=== PATIENT | female | born 1965 | race Caucasian/White ===

== ENCOUNTER 2019-10-29 13:20 | Emergency (ER) | payer OTHER, SELFPAY ==
[2019-10-29 13:33] VITALS: BP 153/116; PULSE 98; RESP 18; TEMP 36.7; O2SAT 98
[2019-10-29 13:39] VITALS: O2SAT 98
--- NOTE | 2019-10-29 14:02 | ED.GENADULT ---
HPI - General Adult General Chief complaint: Upper Respiratory Infection Stated complaint: Influenza A Time Seen by Provider: 10/29/19 13:34 Source: patient Mode of arrival: ambulatory Limitations: no limitations History of Present Illness HPI narrative: Patient is a 54-year-old female who presents to emergency department for evaluation of upper respiratory symptoms that began Sunday night with fever chills and body aches noted she tested positive for influenza A today has had cough congestion rhinorrhea sore throat has been taking [id number] medications with minimal improvement. Related Data Allergies Allergy/AdvReac Type Severity Reaction Status Date / Time clindamycin Allergy Severe ANAPHYLAXIS Verified 10/29/19 13:38 lisinopril Allergy Severe ANGIO EDEMA Verified 10/29/19 13:38 Sulfa (Sulfonamide Allergy Unknown Unknown Verified 10/29/19 13:38 Antibiotics) MOXYFLOXACIN Allergy Severe ANAPHYLAXIS Uncoded 10/29/19 13:38 BETABLOCKERS Allergy Intermediate RED SKIN Uncoded 10/29/19 13:38 NKFA Allergy Unknown Unknown Uncoded 10/29/19 13:38 TRIMETHSULF Allergy Unknown Unknown Uncoded 10/29/19 13:38 SULFAMETHOXAZOLE (Generic Allergy Y Uncoded 10/29/19 13:38 Allergy) Review of Systems Review of Systems: All systems reviewed & are unremarkable except as noted in HPI and below PMFSH Past Medical History Medical History (Updated 10/29/19 @ 14:05 by Ced Garrison PA-C) Obesity Social History Social History Gender identity (if verbalized by the patient): Female Exam Narrative: Exam Narrative: GENERAL: Well-appearing, well-nourished, and in no acute distress. HEAD: Normocephalic, atraumatic. EYES: PERRLA and EOMI. ENT: Nares clear, no rhinorrhea or epistaxis. Mucous membranes moist. CHEST: Clear to auscultation. No respiratory distress. No wheezes rales or rhonchi HEART: Regular rate and rhythm. No murmur heard. Normal peripheral pulses. SKIN: Warm, dry, no rash. NEURO: No focal deficits. Alert and oriented x3. PSYCH: Normal mood and affect. Course Course Emergency Course: Patient in the room in no distress aware of case findings treatment plan and diagnosis agreeing to follow-up as directed or to return if symptoms worsen or concern Vital Signs Vital signs: Vital Signs Temperature 98.1 F 10/29/19 13:33 Pulse Rate 98 10/29/19 13:33 Respiratory Rate 18 10/29/19 13:33 Blood Pressure 153/116 H 10/29/19 13:33 Pulse Oximetry 98 10/29/19 13:33 Temperature 98.1 F 10/29/19 13:33 Pulse Rate 98 10/29/19 13:33 Respiratory Rate 18 10/29/19 13:33 Blood Pressure 153/116 H 10/29/19 13:33 Pulse Oximetry 98 10/29/19 13:39 Medical Decision Making MDM Narrative Medical decision making narrative: Patient in the room in no distress aware of case findings treatment plan and diagnosis agreeing to follow-up as directed provided with reasons to return Vital Signs Vital Signs: Vital Signs Temperature 98.1 F 10/29/19 13:33 Pulse Rate 98 10/29/19 13:33 Respiratory Rate 18 10/29/19 13:33 Blood Pressure 153/116 H 10/29/19 13:33 Pulse Oximetry 98 10/29/19 13:33 Temperature 98.1 F 10/29/19 13:33 Pulse Rate 98 10/29/19 13:33 Respiratory Rate 18 10/29/19 13:33 Blood Pressure 153/116 H 10/29/19 13:33 Pulse Oximetry 98 10/29/19 13:39 Discharge Plan Discharge Clinical Impression: Influenza Patient Disposition: Home, Self-Care Condition: Stable Instructions: Antibiotic Form, Influenza (ED) Additional Instructions: Follow up with your primary care provider within 1-2 days to set up for reevaluation. Go to ER for shortness of breath, difficulty breathing, chest pain, fever/chills, weakness, nauseau/vomitting, etc. or any other concerns. Stay well-hydrated Take any prescribed medications as directed. Follow patient education sheets If you do not have a drug allergy to tylenol or m
== END 2019-10-29 14:26 | disposition home or self-care (01) ==
PROVIDERS: Emergency Provider Emergency Medicine
DX: J10.1 Influenza due to other identified influenza virus with other respiratory manifestations (principal)
CPT/HCPCS: 99283

== ENCOUNTER 2020-10-01 06:47 | Emergency (ER) | payer OTHER, SELFPAY ==
--- NOTE | ~2020-10-01 | XR_ITS ---
EXAMINATION: XR foot RT min 3V DATE: 10/01/2020 07:51 INDICATION: Right foot pain. Injury. TECHNIQUE: 3 views of right foot were obtained. COMPARISON: None. FINDINGS: There is mild hallux valgus. There is a bunionette deformity. No fracture. There is mild os teoarthritis of first metatarsophalangeal joint and some of the midfoot joints and interphalangeal evan ints. There are enthesophytes at the posterior and plantar aspects of calcaneal tuberosity. IMPRESSION: 1. Mild hallux valgus. 2. Bunionette. 3. Mild polyarticular osteoarthritis. Reviewed, dictated and finalized at location [facility]. [employer]
[2020-10-01 06:54] VITALS: BP 150/96; PULSE 83; RESP 16; TEMP 36.7; O2SAT 98
--- NOTE | 2020-10-01 07:46 | ED.LOWEXIN ---
HPI - Extremity Injury (Lower) General Chief Complaint: Extremity Injury, Lower Stated Complaint: right foot pain Time Seen by Provider: 10/01/20 07:26 Source: patient Mode of arrival: ambulatory Limitations: no limitations History of Present Illness HPI Narrative: Patient ran into a door, hitting her right foot on the door frame 2 weeks ago, was complaining of the right second toe pain and deformity, gradually patient developed pain in the lateral side of the right foot. Hurts when she puts weight on it. Patient denies other injuries. Patient did not see any doctor since. Related Data Allergies Allergy/AdvReac Type Severity Reaction Status Date / Time clindamycin Allergy Severe ANAPHYLAXIS Verified 10/01/20 07:03 lisinopril Allergy Severe ANGIO EDEMA Verified 10/01/20 07:03 Sulfa (Sulfonamide Allergy Unknown Unknown Verified 10/01/20 07:03 Antibiotics) MOXYFLOXACIN Allergy Severe ANAPHYLAXIS Uncoded 10/01/20 07:03 BETABLOCKERS Allergy Intermediate RED SKIN Uncoded 10/01/20 07:03 NKFA Allergy Unknown Unknown Uncoded 10/01/20 07:03 TRIMETHSULF Allergy Unknown Unknown Uncoded 10/01/20 07:03 SULFAMETHOXAZOLE (Generic Allergy Y Uncoded 10/01/20 07:03 Allergy) Review of Systems Review of Systems: Narrative: CONSTITUTIONAL: Denies fever, chills, or sweats. EYES: Denies visual changes, redness, or discharge. ENT: Denies rhinorrhea, congestion, sore throat, or otalgia. CARDIOVASCULAR: Denies chest pain, palpitations, or edema. RESPIRATORY: Denies cough or dyspnea. GASTROINTESTINAL: Denies abdominal pain, nausea, vomiting, or diarrhea. GENITOURINARY: Denies dysuria or hematuria. SKIN: Denies rash or itching. MUSCULOSKELETAL: Denies back pain, joint pain, or myalgia. NEUROLOGIC: Denies headache, numbness, or weakness. PSYCHIATRIC: Denies anxiety or depression. PMFSH Past Medical History Medical History Obesity Social History Social History Gender identity (if verbalized by the patient): Female Exam Narrative: Exam Narrative: General appearance: Well-developed, well-nourished Skin: Normal color Head: Normocephalic, nontraumatic Eyes: Clear conjunctiva ENT: Oropharynx normal, ears normal, nose normal Chest and respiratory: Airway patent, no respiratory distress, no accessory muscle use Heart: Regular rate/rhythm Vascular: Normal peripheral pulses, normal capillary refill. Musculoskeletal: Right foot showed no deformity, no swelling, no erythema, no rash, slight diffuse tenderness laterally. Neurologic: Alert and oriented ?3, [employer] is normal as tested, no gross motor deficit Course Course Emergency Course: Stable Vital Signs Vital signs: Vital Signs Temperature 36.7 C 10/01/20 06:54 Pulse Rate 83 10/01/20 06:54 Respiratory Rate 16 10/01/20 06:54 Blood Pressure 150/96 H 10/01/20 06:54 Pulse Oximetry 98 10/01/20 06:54 Temperature 36.7 C 10/01/20 06:54 Pulse Rate 83 10/01/20 06:54 Respiratory Rate 16 10/01/20 06:54 Blood Pressure 150/96 H 10/01/20 06:54 Pulse Oximetry 98 10/01/20 06:54 MDM - Extremity Injury (Lower) MDM Narrative Medical decision making narrative: X-ray right foot ordered. Further plan to follow Differential Diagnosis Differential diagnosis: Likely fracture of toe and other (Foot fracture, sprain, strain) Imaging Data Radiologist's impression: Impressions Foot X-Ray 10/01/20 07:55 IMPRESSION: 1. Mild hallux valgus. 2. Bunionette. 3. Mild polyarticular osteoarthritis. Critical Care Time Critical Care Time Critical Care Time: No Discharge Plan Di
== END 2020-10-01 08:25 | disposition home or self-care (01) ==
PROVIDERS: Emergency Provider Emergency Medicine; PCP Family Medicine
DX: S90.31XA Contusion of right foot, initial encounter (principal); E66.9 Obesity, unspecified; Z68.42 Body mass index [BMI] 45.0-49.9, adult; M20.11 Hallux valgus (acquired), right foot; M21.621 Bunionette of right foot; M19.071 Primary osteoarthritis, right ankle and foot; W22.09XA Striking against other stationary object, initial encounter
CPT/HCPCS: 73630; 99283